=== PATIENT | female | born 1950 | race Caucasian/White ===

== ENCOUNTER 2016-11-06 09:53 | Inpatient (IN) | payer OTHER ==
[~2016-11-06 09:53] MED LIST: BACITRACIN 50,000 UNITS/10 ML SYR IRR ONE; BUPIVACAINE/EPI 0.25% 30 ML SDV ONE; CHLORHEXIDINE GLUC HIBICLENS 118 ML BTL TP ONE; THROMBIN (RECOMBINANT) 5,000 UNIT VIAL TP ONE; ceFAZolin 2 GM/DEXTROSE 100 ML IV ONE
[2016-11-06] MEDS ORDERED: LIDOCAINE 1% 5 ML SDV ONE (11:07)
[2016-11-06] MEDS ORDERED: CEFAZOLIN 2 GM/DEXTROSE/100 ML BAG IV ONE (11:11)
[2016-11-06] MEDS ORDERED: LR 1,000 ML IV ONE (11:17)
[2016-11-06] MEDS ORDERED: METHOCARBAMOL 750 MG TAB PO PRN (11:50)
[2016-11-06] MEDS ORDERED: TEMAZEPAM 15 MG CAP PO PRN (11:50)
[2016-11-06] MEDS ORDERED: diphenhydrAMINE 25 MG CAP PO PRN (11:50)
[2016-11-06] MEDS ORDERED: ONDANSETRON 4 MG/2 ML VIAL IVP PRN (11:50)
[2016-11-06] MEDS ORDERED: ONDANSETRON DISINTEGRATING 4 MG TAB PO PRN (11:50)
[2016-11-06] MEDS ORDERED: DIAZEPAM 5 MG TAB PO PRN (11:50)
[2016-11-06] MEDS ORDERED: POLYETHYLENE GLYCOL 3350 17 GM PKT PO PRN (11:50)
[2016-11-06] MEDS ORDERED: BISACODYL 10 MG SUPP PR PRN (11:50)
[2016-11-06] MEDS ORDERED: DIAZEPAM 10 MG/2 ML SYR IVP PRN (11:50)
[2016-11-06] MEDS ORDERED: HYDROmorphONE/DILAUDID 1 MG/ML SYR IVP PRN (11:50)
[2016-11-06] MEDS ORDERED: LACTULOSE 20 GM/30 ML UDCUP PO PRN (11:50)
[2016-11-06] MEDS ORDERED: NALOXONE HCL 0.4 MG/ML INJ IVP PRN (11:50)
[2016-11-06] MEDS ORDERED: MAGNESIUM HYDROXIDE 30 ML UDCUP PO PRN (11:50)
[2016-11-06] MEDS ORDERED: morphINE PCA 30 MG/30 ML PCA IV PRN (11:50)
[2016-11-06] MEDS ORDERED: ACETAMINOPHEN 325 MG TAB PO PRN (11:50)
[2016-11-06] MEDS ORDERED: MIDAZOLAM 2 MG/2 ML VIAL ONE (11:52)
[2016-11-06] MEDS ORDERED: HYDROmorphONE/DILAUDID 2 MG/ML INJ ONE (12:01)
[2016-11-06] MEDS ORDERED: PROPOFOL 200 MG/20 ML VIAL ONE (12:01)
[2016-11-06] MEDS ORDERED: DEXMEDETOMIDINE HCL 200 MCG in NS 50 ML IV ONE (12:30)
[2016-11-06] MEDS ORDERED: BACITRACIN 50,000 UNITS/10 ML SYR IRR ONE (13:33)
--- NOTE | 2016-11-06 15:56 | SOAPPROG ---
SOAP Progress Note Assessment/Plan: Post Op Visit: S: Awake and alert. NAD. Pt with expected lower back pain O: AFVSS/PERRLA/EOMI no droop CN 2-12 grossly intact +lt touch 5/5 BUE/BLE = CDI PEGGY in place A/P: 66 yo female that is s/p TLIF at L4/5 -orders in place -call with any questions or concerns -take medications as directed -pt seen by Dr Suarez as well 11/06/16 15:54 ICD10 Worksheet Patient Problems: Problems Problem Status Onset Arthrodesis status Acute Lumbar radicular pain Acute Lumbar stenosis Acute - ICD10 Problem Qualifiers (1) Lumbar stenosis (2) Lumbar radicular pain (3) Arthrodesis status
[2016-11-06] MEDS ORDERED: fentaNYL 100 MCG/2 ML INJ ONE (16:35)
[2016-11-06] MEDS: NS W/ 20 KCl/L 1,000 ML IV SCH (20:36)
[2016-11-06] MEDS: FAMOTIDINE 20 MG/NACL 50 ML IV SCH (20:37)
[2016-11-06] MEDS: SENNOSIDES/DOCUSATE SODIUM TAB PO SCH (20:38)
[2016-11-06] MEDS: oxyCODONE IR 5 MG TAB PO PRN (22:49)
--- NOTE | 2016-11-07 01:49 | GOP ---
DATE OF OPERATION: 11/06/2016 SURGEON: Berlin Suarez MD LAND CHECKER: Dario Ram PA-C PREOPERATIVE DIAGNOSIS: Lumbar spondylolisthesis with lumbosacral radiculopathy. Lumbar spondyloli sthesis. Lumbar degenerative disk disease. POSTOPERATIVE DIAGNOSIS: Lumbar spondylolisthesis with lumbosacral radiculopathy. Lumbar spondylol isthesis. Lumbar degenerative disk disease. PROCEDURE PERFORMED: Posterolateral and intervertebral arthrodesis L4-5 (25258), nonsegmental instr umentation across a single interspace L4-5 (03746), microscope, fluoroscopy, spinal stereotaxy, same incision bone graft harvest, placement of non-anchored intervertebral device L4-5 (34571). FINDINGS: ESTIMATED BLOOD LOSS: 100 cc. INDICATIONS: The patient is a 66-year-old with symptomatic spondylolisthesis at L4-5 with right-alex ed pain, whose MRI demonstrated spondylolisthesis and stenosis at that level with facet arthropathy. It was degenerative in nature, and I suggested surgery. She had failed conservative measures, and she wanted to proceed. The risk of adjacent segment level surgery and additional fusion surgery wa s discussed. She knew there was a chance surgery would fail to eliminate her discomfort. She led a n active lifestyle and wanted to pursue this, and it was our feeling that she could likely continue. The risk of nerve injury, spinal fluid leak, pseudoarthrosis was discussed. She wanted to proceed . DESCRIPTION OF PROCEDURE: The patient was taken to the operating room, placed in supine position. General anesthesia was begun. She was flipped prone onto the Hu table. Care was taken to pad all points of contact. Her back was sterilely prepped and draped in the usual fashion. We made a 4 .5 cm incision above the L4-5 interspace. The subcutaneous tissue was dissected using Bovie cautery down to the fascia and subperiosteal dissection was made down the L4-5 lamina. The hypertrophic fa cet at L4-5 was identified and x-rays were taken. We denuded the bilateral hypertrophic L4-5 facet and decorticated the transverse processes at L4-5. A Stealth reference frame was attached. We performed our pedicle screws using frameless Stealth st ereotactic guidance into both L5 pedicles. The L4 pedicles were somewhat small. We began low withi n the pedicle and aimed the screw rostrally to avoid the L3-4 facet joint rostrally. We performed a n O-arm spin and all 4 pedicle screws were in excellent position. They all stimulated at acceptable levels. We chose 30 mm rods, placed them down over the pedicle screws, reduced the spondylolisthes is by reducing the screw tulips onto the rods themselves, and got a nice reduction. We did distract as well. We final tightened the cap screws. We removed all the soft tissue to the bone at L4-5, and harvested the inferior and the rostral L5 sp inous process for autologous grafting purposes. We drilled bilateral laminae at L4-5 and harvested this for autologous grafting purposes and under the scope, we decompressed the thecal sac and the ne rves bilaterally. Her dura was exceptionally thin, it was really remarkable how thin the dura was. It was not violated. We removed the right L4-5 facet. I identified the exiting L4 nerve root, inc ised the L4-5 disk, removed the disk and the cartilaginous endplates. We roughened the subchondral bone to create arthrodesis, and then sized this space and chose a 9 x 2 3 mm Elevate cage. It was inserted. 1 mg of BMP was placed into the disk space. We use 0.5 mg pos teriorly for a total dosage of 1.5. We placed bone autograft and the expandable cage in, expanded i t under fluoroscopic guidance. We then placed BMP posterolaterally bilaterally after decorticated a ll the remaining posterolateral bone and facet joints. We then placed a subfascial drain and closed the incision in multiple layers using Vicryl sutures. There were no complications. SURGEON: Berlin Suarez MD COMPLICATIONS: None. INSTRUMENTATION USED: [employer] Solera pedicle screws with the 475 system, and a [employer] 9 x 23 m m Elevate cage. /[id number]/MODL
[2016-11-07] MEDS: oxyCODONE IR 5 MG TAB PO PRN (02:23)
[2016-11-07 05:30] LABS: HEMATOCRIT 36.4 % (38.0-47.0); HEMOGLOBIN 12.6 g/dL (12.6-16.3)
--- NOTE | 2016-11-07 07:10 | NEUSURGPN ---
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 NAD. Eating/drinking and voiding. No tesfaye/neck/chest/abd or gu complaints. No f/c/n/v/d. Objective: AFVSS/PERRLA/EOMI no droop CN 2-12 grossly intact +lt touch 5/5 BUE/BLE = CDI PEGGY in place Neuro Check Frequency: per routine Urinary Catheter in Place: No Catheter Insertion Date: 11/06/16 - Physician Discussed Patient with .: Erick Patient Seen by : Erick Neurosurgery Physical Exam - Vitals, I&O, Labs I and O 11/06/16 11/07/16 11/08/16 05:59 05:59 05:59 Intake Total 3260 Output Total 1227 Balance 2032 Weight 45.813 kg Intake: Oral (ml) 460 IV Intake (ml) 1750 IV Infused (ml) 1050 Famotidine 20 mg/NaCl 50 50 ml @ 200 mls/hr IV Q12HRS [facility] Rx#:[id number] NS W/ 20 KCl/L 1,000 ml @ 900 75 mls/hr IV CONT [facility] Rx #:[id number] ceFAZolin 1 GM/DEXTROSE 100 50 ml @ 200 mls/hr IV Q8H [facility] Rx#:[id number] Output: Urine (ml) 1175 Catheter 1175 Estimated Blood Loss (ml) 50 Wound Drainage (ml) 2 Posterior Back Hu 2 Palmer Other: Intake Quantity Yes Sufficient Vital Signs Temp Pulse Resp BP Pulse Ox 37.1 C 94 14 87/52 L 95 11/07/16 04:02 11/07/16 04:09 11/07/16 04:02 11/07/16 04:09 11/07/16 04:02 Laboratory Results 11/07/16 04:28 ICD10 Worksheet Patient Problems: Problems Problem Status Onset Arthrodesis status Acute Lumbar radicular pain Acute Lumbar stenosis Acute - ICD10 Problem Qualifiers (1) Lumbar stenosis (2) Lumbar radicular pain (3) Arthrodesis status
[2016-11-07] MEDS: SENNOSIDES/DOCUSATE SODIUM TAB PO SCH ×2 (09:13→19:53)
[2016-11-07] MEDS: HYDROCODONE/APAP 10/325 TAB PO PRN ×2 (09:14→17:57)
[2016-11-07] MEDS: FAMOTIDINE 20 MG/NACL 50 ML IV SCH ×2 (09:29→19:53)
[2016-11-07] MEDS: NS W/ 20 KCl/L 1,000 ML IV SCH (12:08)
[2016-11-07 16:33] VITALS: RESP 16
[2016-11-07 23:56] VITALS: O2SAT 94
[2016-11-08] MEDS: HYDROCODONE/APAP 10/325 TAB PO PRN ×3 (00:24→12:26)
--- NOTE | 2016-11-08 06:58 | NEUSURGPN ---
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 NAD. Eating/drinking and voiding. No f/c/n/v/d. No other complaints or concerns. Objective: AFVSS/PERRLA/EOMI no droop CN 2-12 grossly intact +lt touch 5/5 BUE/BLE = CDI site looks good Neuro Check Frequency: per routine Urinary Catheter in Place: No Catheter Insertion Date: 11/06/16 - Physician Discussed Patient with .: Erick Patient Seen by : Erick Neurosurgery Physical Exam - Vitals, I&O, Labs I and O 11/07/16 11/08/16 11/09/16 05:59 05:59 05:59 Intake Total 3260 1750 Output Total 1227 400 Balance 2033 1350 Weight 45.813 kg Intake: Oral (ml) 460 1750 IV Intake (ml) 1750 IV Infused (ml) 1050 Famotidine 20 mg/NaCl 50 50 ml @ 200 mls/hr IV Q12HRS [facility] Rx#:[id number] NS W/ 20 KCl/L 1,000 ml @ 900 75 mls/hr IV CONT [facility] Rx #:[id number] ceFAZolin 1 GM/DEXTROSE 100 50 ml @ 200 mls/hr IV Q8H [facility] Rx#:[id number] Output: Urine (ml) 1175 400 Catheter 1175 Toilet 400 Estimated Blood Loss (ml) 50 Wound Drainage (ml) 2 Posterior Back Hu 2 Palmer Other: Intake Quantity Yes Sufficient Number of Voids Toilet 1 Vital Signs Temp Pulse Resp BP Pulse Ox 36.9 C 88 16 93/56 L 94 11/07/16 23:55 11/07/16 23:55 11/07/16 23:55 11/07/16 23:55 11/07/16 23:55 Laboratory Results 11/07/16 04:28 ICD10 Worksheet Patient Problems: Problems Problem Status Onset Arthrodesis status Acute Lumbar radicular pain Acute Lumbar stenosis Acute - ICD10 Problem Qualifiers (1) Lumbar stenosis (2) Lumbar radicular pain (3) Arthrodesis status
[2016-11-08 08:08] VITALS: PULSE 86; TEMP 97.8
[2016-11-08 08:14] VITALS: BP 94/62
[2016-11-08] MEDS: SENNOSIDES/DOCUSATE SODIUM TAB PO SCH (08:36)
[2016-11-08] MEDS ORDERED: FAMOTIDINE 20 MG TAB PO SCH (09:00)
[2016-11-08] MEDS: oxyCODONE IR 5 MG TAB PO PRN (15:35)
[2016-11-09] MEDS ORDERED: ENOXAPARIN 40 MG/0.4 ML SYR SC SCH (09:00)
[2016-11-12] MEDS ORDERED: CLIMARA TP SCH (11:49)
== END 2016-11-08 16:05 | disposition home or self-care (01) | DRG 460 ==
LOC: F3N 10:48
PROVIDERS: ADMIT Neurological Surgery; ATTEND Neurological Surgery
DX: M43.16 Spondylolisthesis, lumbar region (principal); M43.17 Spondylolisthesis, lumbosacral region; M48.06 Spinal stenosis, lumbar region; M51.36 Other intervertebral disc degeneration, lumbar region; M41.26 Other idiopathic scoliosis, lumbar region
CPT/HCPCS: 97116-GP; 97161-GP; 97165-GO; 97530-GP; 97535-GO; C1713; J0690; J1170; J2250; J2704; J3010

== ENCOUNTER → 2017-01-15 | Outpatient (CLI) | payer OTHER | LOC: FLAB 10:01 | PROVIDERS: ATTEND Nurse Practitioner | DX: Z98.1 Arthrodesis status (principal) ==

== ENCOUNTER → 2017-04-24 | Outpatient (CLI) | payer OTHER | LOC: FIMAGING 10:46 | PROVIDERS: ATTEND Physician Assistant | DX: Z09 Encounter for follow-up examination after completed treatment for conditions other than malignant neoplasm (principal); Z98.1 Arthrodesis status ==

== ENCOUNTER → 2017-10-25 | Outpatient (CLI) | payer OTHER, MEDICARE | LOC: FIMAGING 08:50 | PROVIDERS: ATTEND Physician Assistant | DX: Z09 Encounter for follow-up examination after completed treatment for conditions other than malignant neoplasm (principal); Z98.1 Arthrodesis status ==

== ENCOUNTER → 2018-09-04 | Outpatient (CLI) | payer OTHER, MEDICARE | LOC: FIMAGING 10:39 | PROVIDERS: ATTEND Physician Assistant | DX: M43.16 Spondylolisthesis, lumbar region (principal); M41.26 Other idiopathic scoliosis, lumbar region; Z98.1 Arthrodesis status ==